=== PATIENT | male | born 1935 | race Caucasian/White ===

== ENCOUNTER 2017-11-13 16:49 | Emergency (ER) | payer MEDICARE, MEDICAID ==
[~2017-11-13 16:49] MED LIST: ACE325 PO; ACE500 PO; ACET12.54 PO; ALP5 PO; AZIT-9 PO; CEP500 PO; DOC100 PO; DUONEB INH; ENO40I SQ; EZE10 PO; EZET1TAB55 PO; LIS20 PO; LISI-346 PO; LISI-362 PO; LISI20TA29 PO; MOM PO; NAPR125O2 PO; NAPR220C12 PO; PER PO; PHEN100 PO; PHEN125O8 PO; PRE5 PO; SIMV-42 PO; TAMS0.4C25 PO; TRAM-420 PO
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
[2017-11-13] MEDS ORDERED: NS(*) 0.9% 1000 ML BAG 1,000 ML IV ONE (17:12)
[2017-11-13 17:35] LABS: PLATELET COUNT, AUTOMATED 308 K/uL (150-450)
--- NOTE | 2017-11-13 17:38 | EKG ---
FACILITY: [facility] [place] PATIENT NAME: KAITLYN PATEL : [id number] MR: [id number] V: [id number] EXAM DATE: ORDERING PHYSICIAN: ZAIN MATA TECHNOLOGIST: JAMILAH Test Reason : ALT. MENTAL STATUS Blood Pressure : / mmHG Vent. Rate : 083 BPM Atrial Rate : 083 BPM P-R Int : 138 ms QRS Dur : 078 ms QT Int : 378 ms P-R-T Axes : 089 042 071 degrees QTc Int : 444 ms Sinus rhythm with premature supraventricular complexes Possible biatrial enlargement Artifact in several leads - repeat if needed Confirmed by JERRY OLIVARES ([id number]) on 11/13/2017 7:41:05 PM Referred By: ESPERANZA Confirmed By:JERRY OLIVARES
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
[2017-11-13 19:30] VITALS: BP 116/77
== END 2017-11-14 05:02 | disposition short-term general hospital (02) ==
LOC: ER 17:51
DX: E86.0 Dehydration (principal); R45.851 Suicidal ideations; I10 Essential (primary) hypertension; D72.829 Elevated white blood cell count, unspecified; E78.00 Pure hypercholesterolemia, unspecified
CPT/HCPCS: 36415; 70450; 71045; 80185; 80305; 81001; 83605; 83735; 84443; 84484; 85025; 87040; 87088; 93005; 96360; 96361; 99284; C1758; G0480; J7030; 80320; 80329; 82040; 82247; 82310; 82374; 82435; 82565; 82947; 84075; 84132; 84155; 84295; 84450; 84460; 84520